=== PATIENT | female | born 1990 | race Caucasian/White ===

== ENCOUNTER 2020-07-26 17:43 | Emergency (ER) | payer MEDICAID ==
--- NOTE | 2020-07-26 18:13 | ER Document Report ---
ED Medical Screen (RME) - General Chief Complaint: Nausea/Vomiting Stated Complaint: NAUSEA/VOMITING Time Seen by Provider: 07/26/20 18:08 Mode of Arrival: Ambulatory Information source: Patient Notes: 30-year-old female presents to ED for complaint of nausea and vomiting. She states she is and she is not sure how far because she has not had an ultrasound. She has not been to the OB or the health department for this . She states last menstrual period was in May. She is on Zofran from her previous doctor. She is also on Effexor XR and topiramate on her previous doctor. She does not have a doctor in this area as yet. States she is also been having some abdominal pain with the nausea and vomiting. She states she has had nausea and vomiting for several weeks but is been consistent all day yesterday and today. Order blood urine ultrasound and IV fluids. She denies any vaginal bleeding. 8 para 5 2 miscarriages I have greeted and performed a rapid initial assessment of this patient. A comprehensive ED assessment and evaluation of the patient, analysis of test results and completion of medical decision making process will be conducted by a n additional ED providers. Physical Exam - Vital signs Vitals: Temp Pulse Resp BP Pulse Ox 98.3 F 89 20 116/76 100 07/25/20 17:46 07/25/20 17:46 07/25/20 17:46 07/25/20 17:46 07/25/20 17:46 Course - Vital Signs Vital signs: Temp Pulse Resp BP Pulse Ox 98.3 F 89 20 116/76 100 07/25/20 17:46 07/25/20 17:46 07/25/20 17:46 07/25/20 17:46 07/25/20 17:46
[2020-07-26] MEDS ORDERED: NORMAL SALINE 1000 ML 1,000 ML IV ONE (18:14)
[2020-07-26] MEDS ORDERED: ONDANSETRON HCL INJ/PF 4 MG/2 ML SDV IV ONE (18:14)
--- NOTE | 2020-07-26 19:00 | RADIOLOGY REPORT (SQ) ---
EXAM DESCRIPTION: U/S [id number] TRNABD 1GES W/ODOP IMAGES COMPLETED DATE/TIME: 07/26/2020 6:41 pm REASON FOR STUDY: Pelvic/abdominal pain nausea and vomiting COMPARISON: None. TECHNIQUE: Transabdominal static and realtime grayscale images acquired of the pelvis. Additional se lected spectral and color Doppler images recorded. All images stored on PACs. bHCG: Not available. CLINICAL DATES: LMP 05/21/2020 9 weeks 3 days LIMITATIONS: None. FINDINGS: FETUS: Single Living intrauterine . ULTRASOUND EGA: 7 weeks 5 days ULTRASOUND HEIDI: 03/09/2021 EFW: Not applicable less than 20 weeks. CRL: 1.45 cm FHR: 168 beats per minute. SURVEY: Too early to assess. AMNIOTIC FLUID: Adequate amount. PLACENTA: Not yet developed due to early gestation. SUBCHORIONIC BLEED: Yes SIZE OF BLEED: Small UTERUS: No masses. No anomalies. CERVICAL LENGTH: 3 cm. Closed. RIGHT ADNEXA: Normal ovary with normal vascular flow. 4 x 3 x 2 cm. No adnexal free fluid. No adnexal masses. LEFT ADNEXA: Ovary not seen. No adnexal free fluid. No adnexal masses. FREE FLUID: None. OTHER: No other significant finding. IMPRESSION: LIVING INTRAUTERINE . EGA 7 weeks 5 days Trimester of : First trimester - 0 to 13 weeks. TECHNICAL DOCUMENTATION: JOB ID: [id number] 2010 [employer]- All Rights Reserved rev Reading location - IP/workstation name: [email or web address]
[2020-07-26 19:14] LABS: ABSOLUTE EOSINOPHILS # (AUTO) 0.2 10^3/uL (0.0-0.6); ABSOLUTE LYMPHOCYTES (AUTO) 2.7 10^3/uL (0.5-4.7); ABSOLUTE MONOCYTES (AUTO) 0.4 10^3/uL (0.1-1.4); ABSOLUTE NEUT (AUTO) 6.2 10^3/uL (1.7-8.2); BASOPHILS % (AUTO) 0.1 % (0-2); EOSINOPHILS % (AUTO) 2.3 % (0-6); HEMATOCRIT 41.7 % (36.0-47.0); HEMOGLOBIN 14.2 g/dL (12.0-15.5); LYMPHOCYTES % (AUTO) 28.5 % (13-45); MEAN CORPUSCULAR VOLUME 86 fl (80-97); MONOCYTES % (AUTO) 4.6 % (3-13); PLATELET COUNT 271 10^3/uL (150-450); RED BLOOD COUNT 4.88 10^6/uL (3.72-5.28); RED CELL DISTRIBUTION WIDTH 12.9 % (11.5-14.0); SEGMENTED NEUTROPHILS % (AUTO) 64.5 % (42-78); TOTAL CELLS COUNTED % (AUTO) 100 %; WHITE BLOOD COUNT 9.6 10^3/uL (4.0-10.5)
[2020-07-26 19:32] LABS: ALBUMIN 4.2 g/dL (3.5-5.0); ALKALINE PHOSPHATASE 46 U/L (38-126); ANION GAP 6 (5-19); ASPARTATE AMINO TRANSFERASE 22 U/L (14-36); BILIRUBIN,TOTAL 0.5 mg/dL (0.2-1.3); BLOOD UREA NITROGEN 7 mg/dL (7-20); CALCIUM 9.3 mg/dL (8.4-10.2); CARBON DIOXIDE 27 mmol/L (22-30); CHLORIDE 104 mmol/L (98-107); GLUCOSE 103 mg/dL (75-110); POTASSIUM 4.3 mmol/L (3.6-5.0); TOTAL PROTEIN 7.5 g/dL (6.3-8.2)
[2020-07-26 20:38] LABS: AMORPHOUS SEDIMENT,URINE TRACE /HPF; APPEARANCE,URINE CLOUDY; BILIRUBIN,URINE NEGATIVE (NEGATIVE); COLOR,URINE YELLOW; GLUCOSE, URINE NEGATIVE (NEGATIVE); KETONES,URINE NEGATIVE (NEGATIVE); LEUKOCYTE ESTERASE,URINE LARGE (NEGATIVE); NITRITE,URINE NEGATIVE (NEGATIVE); PROTEIN,URINE 30 mg/dL (NEGATIVE); URINE SPECIFIC GRAVITY 1.023
[2020-07-26] MEDS ORDERED: CEPHALEXIN 500 MG CAPSULE PO ONE (21:04)
--- NOTE | 2020-07-26 21:14 | ER Document Report ---
ED General - General Chief Complaint: Nausea/Vomiting Stated Complaint: NAUSEA/VOMITING Time Seen by Provider: 07/26/20 18:08 Primary Care Provider: GLORY PLASCENCIA MD [ACTIVE STAFF] - Follow up in 3-5 days Mode of Arrival: Ambulatory - [facility] Notes: Patient is a 30-year-old female who is a and presents with nausea and vomiting. Patient states that she had her last period in the middle of May. She had a positive test around June 24. She has not seen an OB yet. Patient states she has some lower abdominal cramping. She is also been having nausea and vomiting. No vaginal bleeding. Patient states she had problems with nausea and vomiting with her previous pregnancies as well. She denies any urinary symptoms. No fevers or chills. No chest pain or shortness of breath. Patient has been taking Zofran that she had at home. - Related Data Allergies/Adverse Reactions: Sulfa (Sulfonamide Antibiotics) Allergy (Verified 07/26/20 19:04) Past Medical History - General Information source: Patient - Social History Smoking Status: Never Smoker Family History: Reviewed & Not Pertinent Review of Systems - Review of Systems Notes: CONSTITUTIONAL: No fever, fatigue or weight loss. SKIN: No rash. HENT: No congestion, ear pain, or sore throat. CARDIOVASCULAR: No chest pain or edema. RESPIRATORY: No cough, shortness of breath, congestion, or wheezing. GASTROINTESTINAL: Positive for nausea and vomiting. Positive for lower pelvic pain. GENITOURINARY: No dysuria. MUSCULOSKELETAL: No joint pain or swelling. NEUROLOGIC: No seizures. No headache, focal weakness or sensory changes. HEMATOLOGIC: No unusual bruising or bleeding. PSYCHIATRIC: No depression or anxiety. Physical Exam - Vital signs Vitals: Temp Pulse Resp BP Pulse Ox 98.3 F 89 20 116/76 100 07/25/20 17:46 07/25/20 17:46 07/25/20 17:46 07/25/20 17:46 07/25/20 17:46 - General General appearance: Appears well In distress: None Notes: VITAL SIGNS: Within normal limits. GENERAL: No acute distress, non-toxic appearance. HEAD: Normal with no signs of head trauma. EYES: Conjunctiva normal, no discharge. EARS: Hearing grossly intact. NECK: Normal range of motion, no tenderness, supple, no lymphadenopathy, No adenopathy, no JVD. CHEST: Clear breath sounds bilaterally. No wheezes, rales, or rhonchi. CARDIAC: Regular rate and rhythm. S1 and S2, without murmurs, gallops, or rubs. VASCULAR: No Edema. ABDOMEN: Normal and soft with no tenderness, no masses or pulsatile masses. MUSCULOSKELETAL: Good range of motion of all major joints. Extremities without clubbing, cyanosis or edema. NEUROLOGICAL: Alert and oriented x 3. No focal sensory or strength deficits. Speech normal. Follows commands appropriately. PSYCHIATRIC: Normal Affect, judgement and mood. SKIN: Normal appearance with no rashes or lesions. Course - Re-evaluation Re-evalutation: 07/26/20 21:30 Patient's ultrasound shows a live intrauterine gestation. She did have a small subchorionic bleed and is Rh-. I did discuss with Dr. Plascencia, on-call OB, who did not recommend RhoGam as she is not having any vaginal bleeding. I discussed all results with the patient. She has not had any vomiting or nausea while in the ER. She states she is tolerating water and food. Patient does have evidence of a UTI. I will treat with Keflex. Patient was told to follow-up wit h OB. Patient is very agreeable to this plan. She was given strict return precautions. I also informed her she needs to discuss her chronic medications of topiramate and Effexor with her OB. She states that she has been on these during her previous pregnancies as well and they are doing a risk versus benefit and recommended that she stay on it. Patient was told to ask about this at her next appointment. - Vital Signs Vital signs: Temp Pulse Resp BP Pulse Ox 98.2 F 70 15 94/56 L 100 07/26/20 21:22 07/26/20 21:22 07/26/20 21:22 07/26/20 21:22 07/26/20 21:22 - Laboratory Results Result Diagrams: 07/26/20 18:42 07/26/20 18:42 Laboratory Results Interpreted: 07/26/20 07/26/20 18:42 20:13 Sodium 136.5 L Beta HCG, Quant [id number] H Urine Protein 30 H Urine Urobilinogen 2.0 H Ur Leukocyte Esterase LARGE H Critical Laboratory Results Reviewed: No Critical Results - Radiology Results Critical Radiology Results Reviewed: No Critical Results Discharge - Discharge Clinical Impression: First trimester Nausea and vomiting Qualifiers: Vomiting type: unspecified Vomiting Intractability: non-intractable Qualified Code(s): R11.2 - Nausea with vomiting, unspecified Urinary tract infection Qualifiers: Urinary tract infection type: site unspecified Hematuria presence: without hematuria Qualified Code(s): N39.0 - Urinary tract infection, site not specified Condition: Stable Disposition: HOME, SELF-CARE Instructions: ([facility]), Urinary Tract Infection ([facility]), Vomiting ([facility]) Additional Instructions: Your work-up today is reassuring. You have an intrauterine at 7 weeks and 5 days. You do have evidence of a likely UTI. Please take your antibiotics as prescribed. Please follow-up with your OB this week. Return to the ER immediately for any worsening symptoms. Please make sure you are staying hydrated. Prescriptions: Cephalexin Monohydrate [Keflex 500 mg Capsule] 500 mg PO BID 7 Days #14 capsule Referrals: GLORY PLASCENCIA MD [ACTIVE STAFF] - Follow up in 3-5 days
[2020-07-26 21:23] VITALS: BP 94/56
== END 2020-07-26 21:28 | disposition home or self-care (01) ==
LOC: ER 17:43
DX: O21.9 Vomiting of pregnancy, unspecified (principal); O23.41 Unspecified infection of urinary tract in pregnancy, first trimester; Z3A.01 Less than 8 weeks gestation of pregnancy; Z88.2 Allergy status to sulfonamides
CPT/HCPCS: 99285; 96361; 96374; 86900; 86901; 36415; 87086; 84702; 83690; 85025; 80053; 81001; 76801; J2405; J7030

== ENCOUNTER 2020-08-12 21:50 | Emergency (ER) | payer MEDICAID ==
--- NOTE | 2020-08-12 22:06 | ER Document Report ---
ED Medical Screen (RME) - General Chief Complaint: Vomiting Stated Complaint: VOMITING Time Seen by Provider: 08/12/20 22:01 Mode of Arrival: Ambulatory Information source: Patient Notes: Otherwise healthy G8, P5 presenting to the emergency department with vomiting in the setting of . Patient reports she is approximately 10 weeks , states she has been persistently vomiting over the last few days. She does report a history of hyperemesis gravidarum with previous pregnancies. She denies any fever, chills, diarrhea. Patient appears well, nontoxic, no acute distress noted. I have greeted and performed a rapid initial assessment of this patient. A comprehensive ED assessment and evaluation of the patient, analysis of test results and completion of the medical decision making process will be conducted by additional ED providers. I have specifically instructed the patient or family members with the patient to immediately return to any nursing staff should anything change in the patient's condition or with their chief complaint. - Related Data Allergies/Adverse Reactions: Sulfa (Sulfonamide Antibiotics) Allergy (Verified 07/26/20 19:04) Home Medications: effexer. . zofran. phenergan Past Medical History - Social History Chew tobacco use (# tins/day): No Frequency of alcohol use: None Drug Abuse: None Physical Exam - Vital signs Vitals: Temp Pulse Resp BP Pulse Ox 98.6 F 84 17 113/78 100 08/12/20 21:58 08/12/20 21:58 08/12/20 21:58 08/12/20 21:58 08/12/20 21:58 Course - Vital Signs Vital signs: Temp Pulse Resp BP Pulse Ox 98.6 F 84 17 113/78 100 08/12/20 21:58 08/12/20 21:58 08/12/20 21:58 08/12/20 21:58 08/12/20 21:58
[2020-08-12] MEDS ORDERED: NORMAL SALINE 1000 ML 1,000 ML IV PRN (22:07)
[2020-08-12] MEDS ORDERED: METOCLOPRAMIDE HCL INJ/PF 10 MG/2 ML SDV IV ONE (22:07)
[2020-08-12 22:42] LABS: APPEARANCE,URINE CLOUDY; BILIRUBIN,URINE NEGATIVE (NEGATIVE); COLOR,URINE AMBER; GLUCOSE, URINE NEGATIVE (NEGATIVE); KETONES,URINE NEGATIVE (NEGATIVE); LEUKOCYTE ESTERASE,URINE MODERATE (NEGATIVE); NITRITE,URINE NEGATIVE (NEGATIVE); PROTEIN,URINE 100 mg/dL (NEGATIVE); URINE SPECIFIC GRAVITY 1.027
[2020-08-12 22:54] LABS: ABSOLUTE BASOPHILS # (AUTO) 0.1 10^3/uL (0.0-0.2); ABSOLUTE EOSINOPHILS # (AUTO) 0.2 10^3/uL (0.0-0.6); ABSOLUTE LYMPHOCYTES (AUTO) 2.8 10^3/uL (0.5-4.7); ABSOLUTE MONOCYTES (AUTO) 0.5 10^3/uL (0.1-1.4); BASOPHILS % (AUTO) 0.9 % (0-2); EOSINOPHILS % (AUTO) 1.8 % (0-6); HEMATOCRIT 38.8 % (36.0-47.0); HEMOGLOBIN 13.5 g/dL (12.0-15.5); LYMPHOCYTES % (AUTO) 26.3 % (13-45); MEAN CORPUSCULAR HEMOGLOBIN 29.3 pg (27.0-33.4); MEAN CORPUSCULAR HGB CONC 34.7 g/dL (32.0-36.0); MEAN CORPUSCULAR VOLUME 84 fl (80-97); MONOCYTES % (AUTO) 4.9 % (3-13); PLATELET COUNT 236 10^3/uL (150-450); RED CELL DISTRIBUTION WIDTH 12.9 % (11.5-14.0); SEGMENTED NEUTROPHILS % (AUTO) 66.1 % (42-78); TOTAL CELLS COUNTED % (AUTO) 100 %; WHITE BLOOD COUNT 10.6 10^3/uL (4.0-10.5)
[2020-08-12 23:07] LABS: ALKALINE PHOSPHATASE 48 U/L (38-126); ASPARTATE AMINO TRANSFERASE 25 U/L (14-36); BILIRUBIN,DIRECT 0.1 mg/dL (0.0-0.4); BILIRUBIN,TOTAL 0.7 mg/dL (0.2-1.3); BLOOD UREA NITROGEN 4 mg/dL (7-20); GLUCOSE 97 mg/dL (75-110); POTASSIUM 3.7 mmol/L (3.6-5.0); TOTAL PROTEIN 7.1 g/dL (6.3-8.2)
[2020-08-12 23:12] LABS: ANION GAP 7 (5-19); CARBON DIOXIDE 25 mmol/L (22-30); CHLORIDE 102 mmol/L (98-107)
--- NOTE | 2020-08-12 23:51 | ER Document Report ---
HPI - HPI Time Seen by Provider: 08/12/20 22:01 Pain Level: 2 Notes: Otherwise healthy G8, P5 presenting to the emergency department with vomiting in the setting of . Patient reports she is approximately 10 weeks , states she has been persistently vomiting over the last few days. She does report a history of hyperemesis gravidarum with previous pregnancies. She denies any fever, chills, diarrhea. - ROS Systems Reviewed and Negative: Yes All other systems reviewed and negative - GASTROINTESTINAL Gastrointestinal: REPORTS: Nausea, Patient vomiting - REPRODUCTIVE Reproductive: REPORTS: : Past Medical History - General Information source: Patient - Social History Smoking Status: Never Smoker Chew tobacco use (# tins/day): No Frequency of alcohol use: None Drug Abuse: None Family History: Reviewed & Not Pertinent - Medical History Medical History: Negative - Immunizations Immunizations up to date: Yes Vertical Provider Document - CONSTITUTIONAL Notes: PHYSICAL EXAMINATION: GENERAL: Well-appearing, well-nourished and in no acute distress. HEAD: Atraumatic, normocephalic. EYES: Pupils equal round extraocular movements intact, conjunctiva are normal. ENT: Nares patent NECK: Normal range of motion LUNGS: No respiratory distress Musculoskeletal: Normal range of motion NEUROLOGICAL: Normal speech, normal gait. PSYCH: Normal mood, normal affect. SKIN: Warm, Dry, normal turgor, no rashes or lesions noted. Course - Re-evaluation Re-evalutation: Patient has received 1 L of IV fluids, states she feels improved after administration of Reglan, states she has to leave due to a child at home. Patient will be discharged home at this time with strict ED return precautions. - Vital Signs Vital signs: Temp Pulse Resp BP Pulse Ox 98.6 F 84 17 113/78 100 08/12/20 21:58 08/12/20 21:58 08/12/20 21:58 08/12/20 21:58 08/12/20 21:58 - Laboratory Results Result Diagrams: 08/12/20 22:43 08/12/20 22:43 Laboratory Results Interpreted: 08/12/20 08/12/20 08/12/20 22:22 22:43 22:43 WBC 10.6 H Sodium 134.4 L BUN 4 L Urine Protein 100 H Urine Urobilinogen 2.0 H Ur Leukocyte Esterase MODERATE H Critical Laboratory Results Reviewed: No Critical Results - Radiology Results Critical Radiology Results Reviewed: No Critical Results Discharge - Discharge Clinical Impression: Vomiting affecting Condition: Stable Disposition: HOME, SELF-CARE Instructions: Intravenous (IV) Fluids ([facility]) Additional Instructions: Please follow-up with your primary care provider. Prescriptions: Metoclopramide HCl [Reglan 10 mg Tablet] 1 - 2 tab PO ASDIR PRN #25 tablet PRN Reason:
[2020-08-13 00:14] VITALS: BP 98/60
== END 2020-08-13 00:12 | disposition home or self-care (01) ==
LOC: ER 21:50
DX: O21.9 Vomiting of pregnancy, unspecified (principal); Z79.899 Other long term (current) drug therapy; Z3A.00 Weeks of gestation of pregnancy not specified
CPT/HCPCS: 99284; 96360; 36415; 84702; 85025; 80053; 81001; J2765; J7030